=== PATIENT | male | born 1960 | race Caucasian/White ===

== ENCOUNTER 2019-05-20 14:43 | Emergency (ER) | payer OTHER ==
[2019-05-20] MEDS ORDERED: LIDO 2%/EPI 1:200000 PRESRVFRE (20 ML SDVIAL) INF ONE (14:47)
[2019-05-20] MEDS ORDERED: LIDO 2%/EPI 1:200000 PRESRVFRE (20 ML SDVIAL) ONE (14:47)
[2019-05-20 14:50] VITALS: BP 121/85; PULSE 93; TEMP 98; BMI 36.5
--- NOTE | 2019-05-20 14:53 | PDOC ---
History of Present Illness - General Chief Complaint: Laceration Stated Complaint: RT WRIST LACERATION Time Seen by Provider: 05/20/19 14:53 - History of Present Illness Initial Comments: 05/20/19 14:54 pt presents to the ED complaining of laceration to the R wrist after hitting his wrist on a block of wood. Denies other injuries. Patient states that the wood has no splinters and was painted. He is confident that there are no splinters in his wound. Past History - Past Medical History Allergies/Adverse Reactions: Allergies Allergy/AdvReac Type Severity Reaction Status Date / Time No Known Allergies Allergy Verified 08/05/13 06:10 Home Medications: Ambulatory Orders No Home Medications 0 dose .ROUTE UTDICT 08/05/13 COPD: No - Immunization History Td Vaccination: Yes Immunization Up to Date: Yes - Suicide/Smoking/Psychosocial Hx Smoking Status: No Smoking History: Never smoked Have you smoked in the past 12 months: No Number of Cigarettes Smoked Daily: 0 Information on smoking cessation initiated: No Hx Alcohol Use: No Drug/Substance Use Hx: No Substance Use Type: None Review of Systems - Review of Systems Able to Perform ROS?: Yes Comments:: 05/20/19 14:56 Skin: + wound. No active bleeding ext: R wrist: full ROM. Neurovascularly intact. Is the patient limited Tamazight proficient: No *Physical Exam - Vital Signs Last Vital Signs Temp Pulse Resp BP Pulse Ox 98 F 93 H 20 121/85 97 05/20/19 14:43 05/20/19 14:43 05/20/19 14:43 05/20/19 14:43 05/20/19 14:43 - Physical Exam Comments: 05/20/19 16:16 Gen: alert, NAD Skin: + 2 cm linear laceration to the R wrist. No active bleeding. Full ROM of wrist. No deformity or ecchymosis. Procedures - Laceration/Wound Repair Right Lateral Wrist Wound Length: to 2.5 cm Wound Explored: clean Wound's Depth, Shape: superficial, linear Irrigated w/ Saline: No Betadine Prep: No (tap water irrigation for 5 minutes) Anesthesia: 2% Lidocaine w/ Epi Amount of Anesthetic (ccs): 3 Wound Repaired With: Sutures Suture Size/Type: 4:0, nylon Number of Sutures: 3 Layer Closure: No Sterile Dressing Applied: Yes Medical Decision Making - Medical Decision Making 05/20/19 16:19 Pt presents to the ED complaining of laceration to the wrist after hitting his wrist against a wooden chair. Laceration irrigated with tap water and repaired in the ED. Will discharge home with instructions to return to the ED for worsening symptoms. *DC/Admit/Observation/Transfer Diagnosis at time of Disposition: Laceration of wrist Qualifiers: Encounter type: initial encounter Laterality: right Qualified Code(s): S61.511A - Laceration without foreign body of right wrist, initial encounter - Discharge Dispostion Disposition: HOME Condition at time of disposition: Good Decision to Admit order: No - Referrals - Patient Instructions Printed Discharge Instructions: DI for Laceration Repair Additional Instructions: you came to the Ed for a laceration that was repaired in the ED. you should return in 7 days on 05/27/2019 to have the stitches taken out. Keep the wound clean and dry for 24 hours--after that, you can wash with soap and water, but should avoid getting the wound dirty or soaking it in water. Return to the Ed for fever, red hot tender swollen wrist or hand, excessive bleeding or pus from wound. - Post Discharge Activity
== END 2019-05-20 15:25 | disposition home or self-care (01) ==
LOC: FER 14:43
PROC: 0HQDXZZ Repair Right Lower Arm Skin, External Approach (ICD-10-PCS; principal; 2019-05-20)
DX: S61.511A Laceration without foreign body of right wrist, initial encounter (principal); W22.8XXA Striking against or struck by other objects, initial encounter; Y93.89 Activity, other specified; Y92.89 Other specified places as the place of occurrence of the external cause; Y99.0 Civilian activity done for income or pay
CPT/HCPCS: 99282-25

== ENCOUNTER 2019-05-29 14:09 | Emergency (ER) | payer OTHER ==
[2019-05-29 14:21] VITALS: BP 136/85; PULSE 70; TEMP 98.2; BMI 35.7
--- NOTE | 2019-05-29 14:54 | PDOC ---
History of Present Illness - General Chief Complaint: Suture/Staple Removal(Here) Stated Complaint: SUTURE REMOVAL Time Seen by Provider: 05/29/19 14:15 - History of Present Illness Initial Comments: 05/29/19 14:33 59 years old with no significant past medical history presents to the emergency department for suture removal status post sutures 10 days ago. Slight area of redness around the sutured area the patient states this has been there since he injured himself has not worsened there is no spreading and there is no associated fever chills or streaking red lines. Past History - Past Medical History Allergies/Adverse Reactions: Allergies Allergy/AdvReac Type Severity Reaction Status Date / Time No Known Allergies Allergy Verified 05/29/19 14:21 Home Medications: Ambulatory Orders No Home Medications 0 dose .ROUTE UTDICT 08/05/13 COPD: No - Immunization History Td Vaccination: Yes Immunization Up to Date: Yes - Suicide/Smoking/Psychosocial Hx Smoking Status: No Smoking History: Never smoked Have you smoked in the past 12 months: No Number of Cigarettes Smoked Daily: 0 Hx Alcohol Use: No Drug/Substance Use Hx: No Substance Use Type: None Review of Systems - Review of Systems Comments:: 05/29/19 14:34 ROS: A complete review of 10 out of 10 review of systems is taken and is negative apart from what is previously mentioned below and in the HPI. *Physical Exam - Vital Signs Last Vital Signs Temp Pulse Resp BP Pulse Ox 98.2 F 70 16 136/85 96 05/29/19 14:10 05/29/19 14:10 05/29/19 14:10 05/29/19 14:10 05/29/19 14:10 - Physical Exam Comments: 05/29/19 14:35 Vitals: Triage Vital signs reviewed General Appearance: no acute distress, well nourished well developed, Head: Atraumatic, Extremities: Full range of motion to all extremities, no cyanosis, clubbing, or edema Skin: Warm and dry, [address] to patient's right hand, small area of redness POver thedsych: normal mood, normal affect Medical Decision Making - Medical Decision Making 05/29/19 14:54 Patient states there has been an area of redness to where the sutures are since he injured his hand there has been no change no fever no streaking no spreading we discussed antibiotics and given that there has been no change in this redness patient states he does not want to initiate antibiotic treatment at this time We have marked the area with a marker and measures approximately 2 x 3 cm. He will keep a close eye on it he'll return to the emergency department for any spreading redness fever streaking red lines or for any concerns. *DC/Admit/Observation/Transfer Diagnosis at time of Disposition: Visit for suture removal - Discharge Dispostion Disposition: HOME Condition at time of disposition: Good Decision to Admit order: No - Referrals - Patient Instructions Printed Discharge Instructions: DI for Suture Removal Additional Instructions: Keep a close eye on the area of redness if it spreads at all if he develop a fever or any streaking red lines please return to the ED immediately for any. Apply bacitracin daily - Post Discharge Activity
== END 2019-05-29 15:00 | disposition home or self-care (01) ==
LOC: FER 14:09
DX: Z48.02 Encounter for removal of sutures (principal)
CPT/HCPCS: 99281-25